=== PATIENT | female | born 1980 | race Caucasian/White ===

== ENCOUNTER 2016-05-01 07:25 | Emergency (ER) | payer BC ==
[~2016-05-01] VITALS: Ht 162.6 cm; Wt 60.0 kg
[2016-05-01 07:34] VITALS: BP 126/75
[2016-05-01] MEDS ORDERED: LEVO75TA7 PO (07:38)
[2016-05-01 08:36] LABS: BASOPHILS % 0.3 % (0.0-2.0); EOSINOPHILS % 2.5 % (0.0-5.0); HEMATOCRIT. 36.8 % (36.0-48.0); HEMOGLOBIN. 12.1 g/dL (12.0-16.0); LYMPHOCYTES % 33.6 % (20.0-50.0); MEAN CORPUSCULAR HEMOGLOBIN 27.7 pg (28.0-32.0); MEAN CORPUSCULAR HGB CONC 32.8 g/dL (31.0-37.0); MEAN CORPUSCULAR VOLUME 84.7 fL (81.0-99.0); MEAN PLATELET VOLUME 6.9 fl (7.4-10.4); MONOCYTES % 6.3 % (2.0-8.0); NEUTROPHILS % 57.3 % (40.0-76.0); PLATELET 253 x1000/uL (130-400); RED BLOOD CELL COUNT 4.35 mill/uL (4.2-5.4); RED CELL DISTRIBUTION WIDTH 13.9 % (11.6-14.6); WHITE BLOOD COUNT 5.5 x1000/uL (4.5-11.0)
[2016-05-01 08:43] LABS: PARTIAL THROMBOPLASTIN TIME 25.4 sec (24.0-34.0); PROTHROMBIN TIME 10.7 sec
[2016-05-01 08:47] LABS: ALANINE AMINOTRANSFERASE 19 IU/L (13-61); ALBUMIN 3.9 g/dL (3.4-5.0); ANION GAP 13; CALCIUM 8.4 mg/dL (8.5-10.1); CARBON DIOXIDE 29 mEq/L (21-32); CHLORIDE 105 mEq/L (98-107); INDEX HEMOLYSI 1 (1-3); INDEX ICTERIC 1 (1-4); INDEX LIPEMIC 1 (1-3); LIPASE 296 IU/L (73-393); UREA NITROGEN BLOOD 10 mg/dL (7-21)
[2016-05-01 08:54] LABS: eGFR > 60 mL/min (>60)
[2016-05-01 08:56] LABS: T3 FREE 2.21 pg/ml (2.18-3.98); T4 FREE 1.23 ng/dL (0.76-1.46)
== END 2016-05-01 09:50 | disposition left against medical advice (07) ==
LOC: ER 08:00
DX: E03.9 Hypothyroidism, unspecified (principal); R63.4 Abnormal weight loss; R53.83 Other fatigue; R79.1 Abnormal coagulation profile
CPT/HCPCS: 36415; 80053; 83690; 84439; 84443; 84481; 85025; 85610; 85730; 86376; 86800; 99284

== ENCOUNTER → 2016-06-02 | Outpatient (CLI) | payer BC ==
[~2016-06-02] MED LIST: LEVO75TA7 PO
[2016-06-02 11:20] LABS: BASOPHILS % 0.3 % (0.0-2.0); EOSINOPHILS % 1.3 % (0.0-5.0); HEMOGLOBIN. 11.3 g/dL (12.0-16.0); LYMPHOCYTES % 31.9 % (20.0-50.0); MEAN CORPUSCULAR HEMOGLOBIN 27.5 pg (28.0-32.0); MEAN CORPUSCULAR HGB CONC 33.2 g/dL (31.0-37.0); MEAN CORPUSCULAR VOLUME 82.7 fL (81.0-99.0); MEAN PLATELET VOLUME 6.8 fl (7.4-10.4); MONOCYTES % 6.8 % (2.0-8.0); NEUTROPHILS % 59.7 % (40.0-76.0); PLATELET 242 x1000/uL (130-400); RED BLOOD CELL COUNT 4.11 mill/uL (4.2-5.4); RED CELL DISTRIBUTION WIDTH 14.9 % (11.6-14.6); WHITE BLOOD COUNT 5.2 x1000/uL (4.5-11.0)
[2016-06-02 11:45] LABS: ALANINE AMINOTRANSFERASE 25 IU/L (13-61); ALBUMIN 3.7 g/dL (3.4-5.0); ANION GAP 10; CALCIUM 8.8 mg/dL (8.5-10.1); CARBON DIOXIDE 29 mEq/L (21-32); CHLORIDE 106 mEq/L (98-107); HDL CHOLESTEROL 82 mg/dL (40-59); INDEX HEMOLYSI 1 (1-3); INDEX ICTERIC 1 (1-4); INDEX LIPEMIC 1 (1-3); LDL CHOLESTEROL 86 mg/dL (5-100); T4 FREE 1.29 ng/dL (0.76-1.46); TRIGLYCERIDE 63 mg/dL (0-150); UREA NITROGEN BLOOD 13 mg/dL (7-21); eGFR > 60 mL/min (>60)
[2016-06-02 11:47] LABS: T3 FREE 2.44 pg/ml (2.18-3.98)
[2016-06-03 09:18] LABS: THYROID PEROXIDASE ANTIBODY 33 IU/mL (0-34)
[2016-06-05 13:12] LABS: ANTI-THYROGLOBULIN AB 8 IU/mL (0.0-0.9)
== END | disposition home or self-care (01) ==
LOC: LAB 10:55
PROVIDERS: ATTEND Family Medicine
DX: E04.2 Nontoxic multinodular goiter (principal); E06.3 Autoimmune thyroiditis; N80.3 Endometriosis of pelvic peritoneum; D25.9 Leiomyoma of uterus, unspecified
CPT/HCPCS: 36415; 76536; 76830; 76856; 80053; 80061; 84439; 84443; 84481; 85025; 86376; 86800; 87186

== ENCOUNTER → 2016-06-18 | Outpatient (CLI) | payer BC ==
[2016-06-20 13:07] LABS: H PYLORI IGM AB 9.9 units (0.0-8.9)
== END | disposition home or self-care (01) ==
LOC: LAB 09:29
PROVIDERS: ATTEND Family Medicine
DX: K21.9 Gastro-esophageal reflux disease without esophagitis (principal)
CPT/HCPCS: 86677

== ENCOUNTER → 2016-06-19 | Outpatient (CLI) | payer BC ==
[~2016-06-19] MED LIST changes: +GADOBENATE DIMEGLUMINE 529 MG/ML 10ML IV ONE
== END | disposition home or self-care (01) ==
LOC: US 07:38
PROVIDERS: ATTEND Family Medicine
DX: K21.9 Gastro-esophageal reflux disease without esophagitis (principal); R51 Headache
CPT/HCPCS: 70553; 76700; A9577